=== PATIENT | male | born 1965 | race Caucasian/White ===

== ENCOUNTER → 2016-04-18 | Outpatient (CLI) | payer BC ==
--- NOTE | 2016-04-18 16:57 | DIAGNOSTIC IMAGING REPORT ---
ABDOMEN LIMITED (US) CLINICAL HISTORY: Status post hernia surgery with new umbilical lump COMPARISON STUDY: Abdominal ultrasound 01/13/2016. FINDINGS: Within the left periumbilical location there and ill-defined hyperechoic area within the subcutaneous fat which measures 2.3 x 2.1 x 1.4 cm. This appears to demonstrate small amount of central fluid. There is no definite defect at the abdominal wall to suggest a hernia. IMPRESSION: An ill-defined hyperechoic area within the subcutaneous fat of the left periumbilical location which measures 2.3 x 2.1 x 1.4 cm. This demonstrates a small amount of central fluid. This favors fat necrosis. No definite defect at the abdominal wall to suggest a hernia. Electronically signed by: Sean Yusuf M.D. 04/18/2016 4:56 PM Dictated Date/Time: 04/18/2016 4:51 PM
== END | disposition home or self-care (01) ==
LOC: C.ULTR 16:26
PROVIDERS: ATTEND Family Medicine
DX: R19.00 Intra-abdominal and pelvic swelling, mass and lump, unspecified site (principal)

== ENCOUNTER 2017-05-27 21:04 | Emergency (ER) | payer BC ==
[~2017-05-27] VITALS: Ht 190.5 cm; Wt 111.3 kg
[2017-05-27 21:07] VITALS: BP 161/85; TEMP 36.6; Ht 190.5 cm; Wt 111.3 kg
[2017-05-27] MEDS ORDERED: LIDOCAINE/EPINEPHRINE 1% 20 ML VIAL INFIL STA (21:28)
[2017-05-27] MEDS ORDERED: AMOXICILLIN/CLAVULANATE TAB 875 MG TAB PO STA (22:18)
[2017-05-27] MEDS ORDERED: AMOXICIL/CLAVU 875MG HOME PACK PO STA (22:18)
[2017-05-27] MEDS ORDERED: AMOX875T PO (22:20)
--- NOTE | 2017-05-27 22:21 | EMERGENCY ROOM VISIT NOTE ---
ED Visit Note First contact with patient: 21:17 CHIEF COMPLAINT: Left forearm laceration, dog bite HISTORY OF PRESENT ILLNESS: This 51-year-old male patient presents to the emergency department approximately 1 hour after a dog bite of the left forearm. The patient states 2 of his great veins were fighting, and as he attempted to break up a fight, he sustained the bite. The dogs are his, and are up-to-date on their vaccines. The bleeding has stopped. Denies weakness or numbness of the distal arm or hand. The patient rates the pain as minimal and 0/10. The patient denies any other injuries. The patient's Tetanus shot is up to date. REVIEW OF SYSTEMS: A 6 system review of systems was completed with positives and pertinent negatives listed in the HPI. ALLERGIES: None MEDICATIONS: None PMH: None SOCIAL HISTORY: The patient lives locally with family. He denies drug, alcohol , tobacco use. PHYSICAL EXAM: Vital Signs: Reviewed Nurse's notes, vital signs stable. GENERAL : This is a 51 year old male, in no acute distress, well-developed, well- nourished. SKIN: There are multiple lacerations into subcutaneous tissue on the forearm, along with more superficial abrasions. There is one large laceration on the anterior forearm, which measures 1.5cm in length. There is a smaller, more proximal laceration on the anterior forearm which measures 1cm in length. There is a 1cm long laceration on the posterior aspect of the forearm. The edges gape apart with traction. There is no foreign material in the wound and it looks clean. There is no active bleeding. No deep structures such as tendons, bones, or significant blood vessels are seen in the base of the wound. Normal strength and movement of the distal forearm, wrist, and hand. Capillary refill less than 2 seconds. Normal sensation to light and sharp touch. EMERGENCY DEPARTMENT COURSE: I examined the patient. Verbal consent was obtained to perform the procedure. Using sterile technique the wounds were cleansed with Betadine. The area was sterilely draped. 6 total ml of 1% buffered lidocaine with epinephrine was used to anesthetize the lacerations on the forearm. Once the patient was anesthetized, the wounds were copiously irrigated under pressure with sterile saline. The wounds were explored and was as described above. The lacerations were repaired using 9 total simple interrupted 5-0 nylon sutures with the wound edges being well approximated (4 sutures in the 1.5cm laceration, 3 in the anterior 1cm laceration, and 2 in the posterior 1cm laceration). The patient tolerated the procedure well. Hemostasis was achieved. The area was cleaned with sterile saline and dressed with bacitracin ointment and bandage. I did have a discussion with the patient regarding rabies prophylaxis, and he declines at this time. The patient was seen and evaluated by Dr. Juárez. He was given his first dose of Augmentin while here in the ED and given a home pack with prescription for prophylaxis this week. Discharge instructions reviewed. The patient was discharged home in good condition. I attest that I have personally reviewed the patient's current medication list. Blood Pressure Screening: Patient was found to have a slightly elevated blood pressure due to circumstances. I do not believe that the patient requires hypertension monitoring. Differential diagnosis includes laceration, bite, rabies, infection, contusion, fracture, sprain/strain, tendon or ligament injury, neurovascular compromise, foreign body, assault, and others DIAGNOSIS: multiple forearm lacerations, dog bite The chart was completed utilizing [employer] voice recognition software. Grammatical errors, random word insertions, pronoun errors, and incomplete sentences are an occasional consequence of this system due to software limitations, ambient noise, and hardware issues. Any formal questions or concerns about the content, text, or information contained within the body of this dictation should be directly addressed to the provider for clarification. Current/Historical Medications Scheduled Amoxicillin & Pot Clavulanate (Augmentin 875-125 mg), 1 TAB PO BID Allergies Coded Allergies: No Known Allergies (Unverified , 05/27/17) Vital Signs Date Time Temp Pulse Resp B/P (MAP) Pulse Ox O2 Delivery O2 Flow Rate FiO2 05/27/17 22:27 95 18 96 05/27/17 21:07 36.6 99 20 161/85 96 Room Air Medications Administered Medications (Trade) Dose Ordered Sig/Reji Route Start Time Stop Time Status Last Admin Dose Admin Lidocaine/ Epinephrine (Xylocaine/Epine 1% Inj) 20 ml ONE STAT INFIL 05/27/17 21:28 05/27/17 21:29 DC 05/27/17 21:32 20 ML Amoxicillin/ Clavulanate Potassium (Augmentin Tab) 875 mg ONE STAT PO 05/27/17 22:18 05/27/17 22:19 DC 05/27/17 22:23 875 MG Amoxicillin/ Clavulanate Potassium (Augmentin 875MG Home Pack) 1 homepack UD STAT PO 05/27/17 22:18 05/27/17 22:19 DC 05/27/17 22:23 1 HOMEPACK Departure Information Impression Primary Impression: Dog bite Additional Impression: Laceration of multiple sites of arm Dispostion Home / Self-Care Condition GOOD Prescriptions Amoxicillin & Pot Clavulanate (Augmentin 875-125 mg) 1 Tab Tab 1 TAB PO BID for 6 Days, #12 TAB Prov: Jeannine Torres PA-C 05/27/17 Referrals Olena العراقي M.D. (PCP) Patient Instructions ED Bite Dog, ED Laceration Ext Sutr Stap Tape, [employer] Additional Instructions You have received 9 total sutures on your left forearm. These sutures are NOT dissolvable and WILL need to be removed by a health care provider in 10-12 days. You can return to the Emergency Department or contact your Primary Care Provider to have the sutures removed. Proper wound care is essential for adequate wound healing and infection prevention. You can shower and clean the wound with soap and water. Do not scour over the wound, pat dry with a towel. Do not submerse the wound (i.e. bathe or dish wash) until the sutures have been removed. You can use an antibiotic ointment with a dressing over the wound for the next 3-4 days. After this time you may leave the wound dry and open to the air. If crust develops over the wound you can use a Q-tip to apply a 1:1 peroxide:water solution to clean the wound. Look for signs of infection of the wound including: increased pain, swelling, foul discharge, streaking, or increased temperature. If any of these are noticed you should return to the Emergency Department for further assessment and treatment. You were prescribed Augmentin to be taken twice daily for 7 total days. This is an antibiotic. All antibiotics have the potential to cause diarrhea. Stop this medication and contact a medical provider if you were to develop any significant adverse side effects including: wheezing, shortness of breath, passing out, vomiting, or a diffuse rash. Always take antibiotics as directed and COMPLETE the ENTIRE course regardless of the improvement of your symptoms. As with any laceration you may have received nerve damage to the surrounding tissues. This damage may or may not be permanent. You should keep the area covered with sunscreen for the first 6 months to 1 year when at risk for exposure to help minimize scarring. You can also use scar reducing creams or Vitamin E oil to help minimize scarring. For pain control, you can use the following [id number] medicines (if >12 yo): Ibuprofen(Motrin, Advil) may be used for fever or pain. Use 600mg every six hours as needed. Take with food. Avoid using more than 2400mg in a 24 hour period. Do not use 2400mg per day for more than three consecutive days without physician direction. Prolonged inappropriate use can lead to stomach upset or ulcers. (AND/OR) Acetaminophen(Tylenol) may be used for fever or pain. Use 1000mg every six hours as needed. Avoid using more than 3000mg in a 24 hour period. Return to the emergency department if your symptoms worsen despite treatment course outlined above. Problem Qualifiers Primary Impression: Dog bite Encounter type: initial encounter Qualified Codes: W54.0XXA - Bitten by dog , initial encounter Additional Impression: Laceration of multiple sites of arm Encounter type: initial encounter Laterality: left Qualified Codes: S41.112A - Laceration without foreign body of left upper arm, initial encounter
[2017-05-27 22:27] VITALS: PULSE 95; O2SAT 96
--- NOTE | 2017-05-28 01:21 | EMERGENCY ROOM VISIT NOTE ---
ED Visit Note First contact with patient: 21:17 I reviewed the patient's past medical history, medications, and visit nursing notes. I discussed the case with the physician technical staff assistant, examined the patient, and agree with the findings and plan as documented in the physician assistants note.
== END 2017-05-27 22:28 | disposition home or self-care (01) ==
LOC: C.EDB 21:06 → C.EDD 22:28
DX: S51.852A Open bite of left forearm, initial encounter (principal); W54.0XXA Bitten by dog, initial encounter